=== PATIENT | male | born 1965 | race African-American/Black ===

== ENCOUNTER → 2016-12-24 | Outpatient (CLI) | payer BC ==
[~2016-12-24] MED LIST: AMOXICILLIN500 MG ORAL; CIPROFLOXACIN500 M2 ORAL; COREG12.5 MG ORAL; CYCLOBENZAPRINE10 MG ORAL; FLONASE1 SPRAYS NASAL; IBUPROFEN600 MG ORAL; LISINOPRIL20 MG ORAL; NKM; NORCO 5-325 TA1 EACH ORAL; PROMETHAZINE-C118 M1 ORAL; PROMETHAZINE-D118 ML ORAL; SPIRONOLACTONE25 MG ORAL; SPRYCEL50 MG PO
== END | disposition home or self-care (01) ==
LOC: PAN 14:30
DX: R10.9 Unspecified abdominal pain (principal)
CPT/HCPCS: 83013

== ENCOUNTER 2017-12-02 14:11 | Outpatient (CLI) | payer BC | END 2017-12-02 14:45 | disposition home or self-care (01) | LOC: PAN 14:11 | DX: B96.81 Helicobacter pylori [H. pylori] as the cause of diseases classified elsewhere (principal) | CPT/HCPCS: 83013 ==

== ENCOUNTER 2018-06-14 21:58 | Emergency (ER) | payer BC ==
[~2018-06-14] VITALS: Ht 185.4 cm; Wt 147.4 kg
--- NOTE | 2018-06-14 22:33 | Emergency Room Report ---
History of Present Illness General Chief Complaint: Skin Rash/Abscess Source: Patient Present Illness HPI Patient presents with 3 weeks of abscess in his left thigh region. It already burst. He's not taking antibiotics. It has been greater than 10 years for his last tetanus shot. His sugars have been 130s. He denies any fevers or chills. Pain rated 2/10, aching, mainly when palpated. No prior wound care. No NVD, dysuria, cough, chest pain. H/O diabetes H/O CHF H/O implanted defibrillator H/O CML Allergies: Coded Allergies: LISINOPRIL (Verified Allergy, Unknown, 06/14/18) Patient History Past Medical History: see triage record Past Surgical History: pacemaker, other - rotator cuff surgery Social History: Denies: smoking Social History Narrative with - [employer] Reviewed Nursing Documentation: PMH: Agreed; PSxH: Agreed Nursing Documentation-PMH Hx Cardiac Problems: Yes - CHF Hx Hypertension: Yes Hx Pacemaker: Yes Hx Diabetes: Yes Hx Cancer: Yes - CML 12 years ago Hx Gastrointestinal Problems: No - Chronic myeloid leukemia Review of Systems All Other Systems: negative except mentioned in HPI Physical Exam Vital Signs Date Time Temp Pulse Resp B/P (MAP) Pulse Ox O2 Delivery O2 Flow Rate FiO2 06/14/18 22:14 98.2 85 15 131/70 93 Room Air Sp02 EP Interpretation: reviewed, abnormal - interpreted as low by me General Appearance: well appearing, no apparent distress, GCS 15 Head: normocephalic, atraumatic Eyes: bilateral eye normal inspection ENT: hearing grossly normal, normal voice, moist mucus membranes Neck: full range of motion, supple Respiratory: no respiratory distress, speaking full sentences Cardiovascular #1: regular rate, rhythm Cardiovascular #2: 2+ radial (R) Gastrointestinal: normal bowel sounds, non tender, soft Musculoskeletal: back normal, gait/station normal, normal range of motion Neurologic: alert, oriented x3, normal gait, grossly normal Psychiatric: mood/affect normal Skin: other - area of induration with opening with stringy yellow material coming out. No fluctuance Medical Decision Making Diagnostic Impression: Primary Impression: Abscess of left thigh Additional Impression: Diabetes ER Course The patient presents with an abscesses which has been draining. There is some material it's present there which was partially removed by me. Patient not toxic. This is a localized infection. Antibiotics are indicated as well as local wound care. Patient states his diabetes is not out of control. Discussed local wound care. Patient stable for outpatient observation and treatment. Last Vital Signs Date Time Temp Pulse Resp B/P (MAP) Pulse Ox O2 Delivery O2 Flow Rate FiO2 06/14/18 23:41 98.2 85 15 131/70 93 Room Air Status: improved Disposition: HOME, SELF-CARE Condition: Improved Scripts Ibuprofen* (MOTRIN*) 600 Mg Tablet 600 MG ORAL Q6H PRN for For Pain, #20 TAB Prov: Eduar Christianson MD 06/14/18 Bacitracin (Bacitracin) 28.4 Gm Oint...g. 1 APPLIC TOPIC BID, #20 GM Prov: Eduar Christianson MD 06/14/18 Trimethoprim/Sulfamethoxazole 160/800* (BACTRIM DS TABLET*) 1 Each Tablet 1 TAB ORAL Q12H, #14 TAB 0 Refills Prov: Eduar Christianson MD 06/14/18 Eduar Christianson MD Jun 14, 2018 22:33
[2018-06-14] MEDS ORDERED: BACTRIM DS TAB1 EAC1 ORAL (22:44)
[2018-06-14] MEDS ORDERED: BACITRACIN15 GM TOPIC (22:44)
[2018-06-14] MEDS ORDERED: IBUPROFEN600 MG ORAL (22:44)
[2018-06-14] MEDS ORDERED: Bactrim-DS 1 tab ORAL ONE (22:45)
[2018-06-14] MEDS ORDERED: Bacitracin Oint UD TOPIC ONE (22:45)
[2018-06-14] MEDS ORDERED: Tetanus/Diptheria/Pertussis Vaccine 0.5ml Syr IM ONE (22:45)
[2018-06-14 23:41] VITALS: BP 131/70
== END 2018-06-14 23:00 | disposition home or self-care (01) ==
LOC: EMR 22:55
DX: L02.416 Cutaneous abscess of left lower limb (principal); Z23 Encounter for immunization; I11.0 Hypertensive heart disease with heart failure; I50.9 Heart failure, unspecified; E11.9 Type 2 diabetes mellitus without complications; Z85.6 Personal history of leukemia
CPT/HCPCS: 90471; 90715; 99282

== ENCOUNTER 2018-12-20 22:24 | Emergency (ER) | payer BC ==
[~2018-12-20] VITALS: Ht 185.4 cm; Wt 140.6 kg
[~2018-12-20 22:24] MED LIST changes: +BACITRACIN15 GM TOPIC; +BACTRIM DS TAB1 EAC1 ORAL; +PANTOPRAZOLE SO40 MG ORAL
[2018-12-20 22:52] VITALS: BP 132/81
--- NOTE | 2018-12-20 22:55 | NUR ---
ED Nurse Note: Pt L elbow hit the table a week ago and still painful. Pt took some Mortin but not helping. Pt is AO x 4times, VSS, on room air no distress. MICHELLED seen Pt at bedside.
[2018-12-20] MEDS ORDERED: IBUPROFEN600 MG ORAL (23:02)
--- NOTE | 2018-12-20 23:03 | Emergency Room Report ---
History of Present Illness General Chief Complaint: Upper Extremity Injury Source: Patient Present Illness HPI Is a 53-year-old male with history of high blood pressure and diabetes. He presents with chief complaint left elbow pain. Onset was about a week ago. He was rolling backward on the chair and hit his elbow against a desk. He complaining of pain to the posterior aspect the elbow. No swelling. Full range of motion. No fever chills but no nausea no vomiting. Also last week he fell backward and hit the back of his head. No loss of consciousness. No pain now. Since he is flying in a few days, brought him in to be checked out to make sure everything is okay. Again he has no pain. No nausea no vomiting no other complaint. Allergies: Coded Allergies: LISINOPRIL (Verified Allergy, Unknown, 06/14/18) Patient History Past Medical History: see triage record, old chart reviewed, HTN, CAD Past Surgical History: other Pertinent Family History: none Social History: Denies: smoking Immunizations: other Reviewed Nursing Documentation: PMH: Agreed; PSxH: Agreed Nursing Documentation-PMH Hx Cardiac Problems: Yes - CHF Hx Hypertension: Yes Hx Pacemaker: Yes Hx Diabetes: Yes Hx Cancer: Yes - CML 12 years ago Hx Gastrointestinal Problems: No - Chronic myeloid leukemia Review of Systems Eye: Denies: eye pain, blurred vision ENT: Denies: ear pain, nose congestion, throat swelling Respiratory: Denies: cough, shortness of breath Cardiovascular: Denies: chest pain, palpitations Gastrointestinal: Denies: abdominal pain, diarrhea, nausea, vomiting Musculoskeletal: Reports: joint pain; Denies: back pain Skin: Denies: rash Neurological: Denies: headache, numbness Endocrine: Denies: increased thirst, increased urine Hematologic/Lymphatic: Denies: easy bruising All Other Systems: negative except mentioned in HPI Physical Exam Vital Signs Date Time Temp Pulse Resp B/P (MAP) Pulse Ox O2 Delivery O2 Flow Rate FiO2 12/20/18 22:45 98.4 91 19 99 Room Air vitals unremarkable Sp02 EP Interpretation: reviewed, normal General Appearance: well appearing, no apparent distress, alert Head: normocephalic, atraumatic Eyes: bilateral eye PERRL, bilateral eye EOMI ENT: hearing grossly normal, normal pharynx Neck: full range of motion, supple, no meningismus Respiratory: chest non-tender, lungs clear, normal breath sounds Cardiovascular #1: regular rate, rhythm, no murmur Gastrointestinal: normal bowel sounds, non tender, no mass, no organomegaly, no bruit, non-distended Musculoskeletal: back normal, gait/station normal, normal range of motion, other - minimal tenderness to the olecranon process of the left elbow. FROM, NVI. No deformity Psychiatric: mood/affect normal Skin: warm/dry Medical Decision Making Diagnostic Impression: Primary Impression: Contusion of left elbow, initial encounter Additional Impression: Head injury, acute Qualified Codes: S09.90XA - Unspecified injury of head, initial encounter ER Course Patient with soft tissue injury. No fracture dislocation. I see no need for CT scan of his head since this occur a week ago and he has no symptoms right now. Other X-Ray Diagnostic Results Other X-Ray Diagnostic Results : X-Ray ordered: X-rays left elbow # of Views/Limited Vs Complete: 4 View Indication: Pain EP Interpretation: Yes Interpretation: no dislocation, no soft tissue swelling, no fractures Impression: No acute disease Electronically Signed by: Salty Cao MD Last Vital Signs Date Time Temp Pulse Resp B/P (MAP) Pulse Ox O2 Delivery O2 Flow Rate FiO2 12/20/18 22:45 98.4 91 19 99 Room Air Status: improved Disposition: HOME, SELF-CARE Condition: Stable Scripts Ibuprofen* (MOTRIN*) 600 Mg Tablet 600 MG ORAL THREE TIMES A DAY, #30 TAB 0 Refills Prov: Salty Cao MD 12/20/18 Additional Instructions: Follow-up with your doctor in 7 days. Return if symptom worsen. Salty Cao MD December 20, 2018 23:02
--- NOTE | 2018-12-20 23:05 | NUR ---
ED Nurse Note: X ray at bedside.
[2018-12-20 23:25] VITALS: BP 132/81
--- NOTE | 2018-12-20 23:26 | NUR ---
ER DISCHARGE NOTE: Patient is cleared to be discharged per ERMD, pt is aox4, on room air, with stable vital signs. pt was given dc and prescription instructions, pt was able to verbalize understanding, pt id band removed without complications. pt is able to ambulate with steady gait with girlfriend. pt took all belongings.
--- NOTE | 2018-12-21 11:20 | Diagnostic Imaging Report ---
Indication: Pain Findings: 3 views of the left elbow were obtained. Soft tissue swelling noted. There is no definite fracture or malalignment. There is ossification at the posterior aspect of the olecranon. Small ossicles are noted adjacent to the lateral epicondyles the humerus. Soft tissue callus patient also noted within muscles in the anterior and posterior aspects of the upper arm. IMPRESSION: No acute fracture or malalignment concerning for acute injury. Muscular calcifications nonspecific. Calcific tendinopathy suspected distal triceps and lateral epicondylar region.
== END 2018-12-21 | disposition home or self-care (01) ==
LOC: EMR 23:30
DX: S50.02XA Contusion of left elbow, initial encounter (principal); S09.90XA Unspecified injury of head, initial encounter; E11.9 Type 2 diabetes mellitus without complications; I10 Essential (primary) hypertension; Z88.8 Allergy status to other drugs, medicaments and biological substances; I11.0 Hypertensive heart disease with heart failure; I50.9 Heart failure, unspecified; W22.8XXA Striking against or struck by other objects, initial encounter; Y92.9 Unspecified place or not applicable
CPT/HCPCS: 99283